=== PATIENT | male | born 1945 | race Caucasian/White ===

== ENCOUNTER → 2020-04-13 | Outpatient (CLI) | payer MEDICARE, BC | END | disposition home or self-care (01) | LOC: STAR 12:34 | PROVIDERS: ATTEND Anesthesiology | DX: Z20.828 Contact with and (suspected) exposure to other viral communicable diseases (principal) | CPT/HCPCS: 87635 ==

== ENCOUNTER 2020-04-17 12:26 | Observation (INO) | payer MEDICARE, BC ==
[~2020-04-17] VITALS: Ht 170.2 cm; Wt 59.9 kg
[2020-04-17] MEDS ORDERED: AMLO-150 PO (13:19)
[2020-04-17] MEDS ORDERED: ALEN70TA3 PO (13:19)
[2020-04-17] MEDS ORDERED: LOSA25TA25 PO (13:19)
[2020-04-17] MEDS ORDERED: HYDR-3246 PO (13:19)
[2020-04-17] MEDS ORDERED: D5%-0.45% NACL 1,000 ML IV SCH (13:30)
[2020-04-17 13:54] VITALS: BP 169/100
[2020-04-17 14:01] LABS: BASOPHILS % (AUTO) 0 % (0-1); EOSINOPHILS % (AUTO) 1 % (1-7); LYMPHOCYTES % (AUTO) 33 % (22-44); MEAN CORPUSCULAR HEMOGLOBIN 29.6 pg (27.5-34.5); MONOCYTES % (AUTO) 6 % (2-9); NEUTROPHILS % (AUTO) 59 % (42-75); PLATELET COUNT 406 x10^3/uL (130-400); RED BLOOD COUNT 4.96 x10^6/uL (4.38-5.82); RED CELL DISTRIBUTION WIDTH 14.3 % (9.4-14.8)
[2020-04-17 14:13] LABS: ALANINE AMINOTRANSFERASE 21 U/L (12-78); ALBUMIN 4.5 g/dL (3.4-5.0); ANION GAP 7 mmol/L (5-15); CALCIUM 9.8 mg/dL (8.5-10.1); CHLORIDE 102 mmol/L (98-107); CREATININE 0.71 mg/dL (0.7-1.3)
[2020-04-17 14:15] LABS: ALKALINE PHOSPHATASE 95 U/L (45-117); BILIRUBIN,TOTAL 0.4 mg/dL (0.2-1.0)
[2020-04-17 14:36] LABS: MD NO
[2020-04-17] MEDS ORDERED: MIDAZOLAM 1 MG/ML, 5ML ONE (14:38)
[2020-04-17] MEDS ORDERED: FENTANYL PF 100 MCG/2ML ONE (14:38)
[2020-04-17] MEDS ORDERED: PROTAMINE SULFATE 10 MG/ML, 25ML ONE (14:39)
[2020-04-17] MEDS ORDERED: FLUMAZENIL 0.1 MG/1 ML, 5ML ONE (14:39)
[2020-04-17] MEDS ORDERED: NALOXONE 1 MG/ML, 2ML ONE (14:39)
[2020-04-17] MEDS ORDERED: HEPARIN 1,000 UNITS/ML, 10ML ONE (14:39)
[2020-04-17] MEDS ORDERED: LIDOCAINE 1%, 10ML ONE (15:27)
[2020-04-17] MEDS ORDERED: hydrALAzine 20 MG/ML, 1ML ONE (16:56)
[2020-04-17] MEDS ORDERED: ONDANSETRON 2MG/ML, 2ML IVPush PRN (18:00)
[2020-04-17] MEDS ORDERED: BISACODYL 10 MG SUPP PR PRN (18:00)
[2020-04-17] MEDS: SODIUM CHLORIDE 0.9% 1,000 ML IV SCH (18:00)
[2020-04-17] MEDS ORDERED: ZOLPIDEM 5MG TABLET PO PRN (21:00)
[2020-04-17 22:42] VITALS: BP 135/82
[2020-04-17] MEDS: HYDROcodone/APAP 10/325 MG TABLET PO PRN (22:43)
[2020-04-17] MEDS: LOSARTAN 25MG TABLET PO SCH (22:43)
[2020-04-17] MEDS: ENOXAPARIN 30 MG/0.3 ML SQ SCH (22:44)
[2020-04-18 00:16] VITALS: BP 137/51
[2020-04-18 04:11] VITALS: BP 151/76
[2020-04-18] MEDS: SODIUM CHLORIDE 0.9% 1,000 ML IV SCH ×2 (07:20→20:40)
[2020-04-18] MEDS: HYDROcodone/APAP 10/325 MG TABLET PO PRN ×4 (07:28→22:38)
[2020-04-18 08:02] VITALS: BP 145/84
[2020-04-18] MEDS ORDERED: CLOPIDOGREL 75 MG TABLET PO SCH (09:00)
[2020-04-18] MEDS ORDERED: AMLODIPINE 5 MG TABLET PO SCH (09:00)
[2020-04-18] MEDS ORDERED: CLOP75TA PO (09:03)
[2020-04-18] MEDS: ENOXAPARIN 30 MG/0.3 ML SQ SCH ×2 (11:52→22:38)
[2020-04-18 14:30] VITALS: BP 137/87
[2020-04-18 20:28] VITALS: BP 153/74
[2020-04-18] MEDS: LOSARTAN 25MG TABLET PO SCH (22:38)
[2020-04-19 03:19] VITALS: BP 135/72
[2020-04-19] MEDS: HYDROcodone/APAP 10/325 MG TABLET PO PRN (06:02)
[2020-04-19 07:44] VITALS: BP 148/76
[2020-04-24] MEDS ORDERED: ALENDRONATE 70 MG TABLET PO SCH (06:30)
== END 2020-04-19 07:50 | disposition home or self-care (01) ==
LOC: OUT 12:26 → ORIP 17:31 → 4NE 22:07
PROVIDERS: ADMIT Surgery; ATTEND Surgery
DX: I70.211 Atherosclerosis of native arteries of extremities with intermittent claudication, right leg (principal); I70.212 Atherosclerosis of native arteries of extremities with intermittent claudication, left leg; I10 Essential (primary) hypertension; M54.5 Low back pain; F17.210 Nicotine dependence, cigarettes, uncomplicated; Z79.891 Long term (current) use of opiate analgesic; Z79.899 Other long term (current) drug therapy
CPT/HCPCS: 36415; 75630; 76937; 80053; 85025; 93925; 96360; 96361; 96372; 99156; 99157; C1725; C1751; C1769; C1874; C1894; G0378; J0360; J1644; J1650; J2250; J2720; J3010; J3490; J2310

== ENCOUNTER → 2020-07-14 | Outpatient (CLI) | payer MEDICARE, BC ==
[~2020-07-14] MED LIST: ALEN70TA3 PO; AMLO-150 PO; ATOR40TA PO; CLOP75TA PO; HYDR-3248 PO; LOSA25TA25 PO
[2020-07-14 13:58] LABS: BASOPHILS % (AUTO) 0 % (0-1); EOSINOPHILS % (AUTO) 0 % (1-7); LYMPHOCYTES % (AUTO) 26 % (22-44); MEAN CORPUSCULAR HEMOGLOBIN 30.2 pg (27.5-34.5); MEAN CORPUSCULAR HGB CONC 33.4 g/dL (33.2-36.2); MEAN PLATELET VOLUME 6.5 fL (7.4-10.4); MONOCYTES % (AUTO) 6 % (2-9); NEUTROPHILS % (AUTO) 67 % (42-75); PLATELET COUNT 424 x10^3/uL (130-400); RED BLOOD COUNT 4.45 x10^6/uL (4.38-5.82); RED CELL DISTRIBUTION WIDTH 13.2 % (9.4-14.8)
[2020-07-14 14:10] LABS: ALANINE AMINOTRANSFERASE 28 U/L (12-78); ANION GAP 4 mmol/L (5-15); CALCIUM 9.3 mg/dL (8.5-10.1); CHLORIDE 99 mmol/L (98-107); CREATININE 0.79 mg/dL (0.7-1.3); MD NO
[2020-07-14 14:12] LABS: ALKALINE PHOSPHATASE 120 U/L (45-117); BILIRUBIN,TOTAL 0.4 mg/dL (0.2-1.0); TOTAL PROTEIN 7.3 g/dL (6.4-8.2)
== END | disposition home or self-care (01) ==
LOC: STAR 12:49
PROVIDERS: ATTEND Surgery
DX: Z01.812 Encounter for preprocedural laboratory examination (principal); Z20.822 Contact with and (suspected) exposure to COVID-19; M48.54XA Collapsed vertebra, not elsewhere classified, thoracic region, initial encounter for fracture; I25.2 Old myocardial infarction
CPT/HCPCS: 71046; 80053; 85025; 87635; 93005